=== PATIENT | male | born 1990 | race African-American/Black ===

== ENCOUNTER 2017-07-07 23:04 | Emergency (ER) | payer OTHER, SELFPAY ==
[2017-07-07] MEDS ORDERED: Acetaminophen/Codeine 30-300mg Tablet ONE (23:41)
== END 2017-07-07 23:49 | disposition home or self-care (01) ==
LOC: SCSER 23:04
DX: J40 Bronchitis, not specified as acute or chronic (principal); J32.9 Chronic sinusitis, unspecified; H60.92 Unspecified otitis externa, left ear; H61.23 Impacted cerumen, bilateral
CPT/HCPCS: 99283